=== PATIENT | male | born 1955 | race Caucasian/White ===

== ENCOUNTER 2019-02-16 08:24 | Observation (INO) ==
[2019-02-16] MEDS ORDERED: Ondansetron 4 MG/2 ML VIAL IVP PRN (10:52)
[2019-02-16] MEDS ORDERED: Naloxone 0.4 MG/ML INJ IVP PRN (10:52)
[2019-02-16] MEDS ORDERED: *HR* Heparin 5,000 UNIT/ML VIAL IVP PRN ×2 (11:03)
[2019-02-16] MEDS: Heparin 25,000 UNIT/250 ML D5W 25,000 UNIT/250 ML IV.SOLN IVC SCH (12:25)
[2019-02-16 13:48] LABS: Basophils # 0.1 K/mcL (0.0-0.2); Basophils % 0.8 %; Eosinophils # 0.2 K/mcL (0.0-0.6); Eosinophils % 2.6 %; Hematocrit 44.9 % (37.5-50.1); Immature Granulocytes % 0.1 % (0-4); Lymphocytes # 1.8 K/mcL (0.6-4.6); Lymphocytes % 24.4 %; Mean Corpuscular HGB Conc 35.6 g/dL (31.6-35.5); Mean Corpuscular Hemoglobin 32.9 pg (28.0-33.3); Mean Corpuscular Volume 92.4 fL (83.0-100.0); Mean Platelet Volume 10.3 fL (9.4-12.4); Monocytes # 0.5 K/mcL (0.0-1.3); Monocytes % 6.4 %; Neutrophils # 4.9 K/mcL (1.6-8.9); Platelet Count 265 K/mcL (140-400); Red Blood Count 4.86 M/mcL (4.19-5.50); Red Cell Distribution Width 12.2 % (11.5-14.5); Segmented Neutrophils % 65.7 %; White Blood Count 7.5 K/mcL (4.3-11.1)
[2019-02-16] MEDS ORDERED: Nitroglycerin 0.4 MG TAB.SUBL SL PRN (15:03)
[2019-02-16 15:08] LABS: BUN/Creatinine Ratio 15 (6-26); Blood Urea Nitrogen 11 mg/dL (8-23); Calcium 9.1 mg/dL (8.6-10.3); Carbon Dioxide 24 mEq/L (23-29); Chloride 113 mEq/L (98-107); Glucose 110 mg/dL (70-105); Osmolality,Calculated 294 (280-300); Potassium 3.7 mEq/L (3.5-5.1); Sodium 142 mEq/L (136-145); Troponin I 1.38 ng/mL (< 0.04); eGFR For African Americans > 60 (> 60); eGFR For Non-African Americans > 60 (> 60)
[2019-02-17 02:12] LABS: Basophils # 0.1 K/mcL (0.0-0.2); Basophils % 0.6 %; Eosinophils # 0.3 K/mcL (0.0-0.6); Eosinophils % 3.7 %; Hematocrit 43.4 % (37.5-50.1); Hemoglobin 14.5 g/dL (12.9-16.9); Immature Granulocytes % 0.2 % (0-4); Lymphocytes # 2.6 K/mcL (0.6-4.6); Lymphocytes % 28.6 %; Mean Corpuscular HGB Conc 33.4 g/dL (31.6-35.5); Mean Corpuscular Hemoglobin 32.3 pg (28.0-33.3); Mean Corpuscular Volume 96.7 fL (83.0-100.0); Mean Platelet Volume 10.5 fL (9.4-12.4); Monocytes # 0.7 K/mcL (0.0-1.3); Monocytes % 7.5 %; Neutrophils # 5.4 K/mcL (1.6-8.9); Platelet Count 231 K/mcL (140-400); Red Blood Count 4.49 M/mcL (4.19-5.50); Red Cell Distribution Width 12.5 % (11.5-14.5); Segmented Neutrophils % 59.4 %; White Blood Count 9.1 K/mcL (4.3-11.1)
[2019-02-17 02:32] LABS: Chol/HDL Ratio 4.4 (0-4.9)
[2019-02-17 02:34] LABS: BUN/Creatinine Ratio 19 (6-26); Blood Urea Nitrogen 13 mg/dL (8-23); Calcium 8.5 mg/dL (8.6-10.3); Carbon Dioxide 23 mEq/L (23-29); Chloride 109 mEq/L (98-107); Glucose 123 mg/dL (70-105); Osmolality,Calculated 293 (280-300); Potassium 3.8 mEq/L (3.5-5.1); Sodium 141 mEq/L (136-145); eGFR For African Americans > 60 (> 60); eGFR For Non-African Americans > 60 (> 60)
[2019-02-17] MEDS: Heparin 25,000 UNIT/250 ML D5W 25,000 UNIT/250 ML IV.SOLN IVC SCH (06:46)
[2019-02-17] MEDS ORDERED: Aspirin 81 MG TAB.CHEW PO SCH (09:00)
[2019-02-17 10:18] LABS: Thyroid Stimulating Hormone 1.733 mcIU/mL (0.340-5.600)
[2019-02-17] MEDS ORDERED: *HR* Heparin 10,000 UNIT/10 ML VIAL ONE (13:20)
[2019-02-17] MEDS ORDERED: Heparin 1,000 UNITS/500 mL 500 ML ONE (13:20)
[2019-02-17] MEDS ORDERED: *HR* Midazolam HCl 2 MG/2 ML VIAL ONE (13:20)
[2019-02-17] MEDS ORDERED: 0.9 % Sodium Chloride 2,000 ML ONE (13:20)
[2019-02-17] MEDS ORDERED: ISOVUE-370 200 ML INFUS..BTL ONE (13:20)
[2019-02-17] MEDS ORDERED: Verapamil 5 MG/2 ML VIAL ONE (13:20)
[2019-02-17] MEDS ORDERED: Nitroglycerin 1,000 MCG/10 ML VIAL IV ONE (13:21)
[2019-02-17] MEDS ORDERED: *HR* Atropine Sulfate 1 MG/10 ML SYRINGE ONE (13:56)
[2019-02-17] MEDS ORDERED: *HR* Ticagrelor 90 MG TABLET ONE (14:15)
[2019-02-17] MEDS: *HR* Ticagrelor 90 MG TABLET PO SCH (21:34)
[2019-02-18 01:51] LABS: Basophils # 0.1 K/mcL (0.0-0.2); Basophils % 0.5 %; Eosinophils # 0.3 K/mcL (0.0-0.6); Eosinophils % 3.2 %; Hematocrit 42.5 % (37.5-50.1); Hemoglobin 14.4 g/dL (12.9-16.9); Immature Granulocytes % 0.3 % (0-4); Lymphocytes # 1.9 K/mcL (0.6-4.6); Lymphocytes % 21.2 %; Mean Corpuscular HGB Conc 33.9 g/dL (31.6-35.5); Mean Corpuscular Hemoglobin 32.7 pg (28.0-33.3); Mean Corpuscular Volume 96.6 fL (83.0-100.0); Mean Platelet Volume 10.5 fL (9.4-12.4); Monocytes # 0.6 K/mcL (0.0-1.3); Monocytes % 6.9 %; Neutrophils # 6.2 K/mcL (1.6-8.9); Platelet Count 239 K/mcL (140-400); Red Cell Distribution Width 12.4 % (11.5-14.5); Segmented Neutrophils % 67.9 %; White Blood Count 9.2 K/mcL (4.3-11.1)
[2019-02-18 02:08] LABS: BUN/Creatinine Ratio 21 (6-26); Blood Urea Nitrogen 16 mg/dL (8-23); Calcium 8.5 mg/dL (8.6-10.3); Carbon Dioxide 23 mEq/L (23-29); Chloride 111 mEq/L (98-107); Glucose 111 mg/dL (70-105); Osmolality,Calculated 294 (280-300); Sodium 141 mEq/L (136-145); eGFR For African Americans > 60 (> 60); eGFR For Non-African Americans > 60 (> 60)
[2019-02-18 07:25] VITALS: BP 117/75
[2019-02-18] MEDS: *HR* Ticagrelor 90 MG TABLET PO SCH (08:24)
[2019-02-18] MEDS ORDERED: Aspirin 81 MG TAB.CHEW PO SCH (09:00)
== END 2019-02-18 11:40 | disposition home or self-care (01) ==
LOC: 2NNU → SUATTDRO 09:56
PROVIDERS: ADMIT Family Medicine; ATTEND Student in an Organized Health Care Education/Training Program